=== PATIENT | female | born 2000 | race Caucasian/White ===

== ENCOUNTER 2021-07-06 09:18 | Outpatient (REF) | payer OTHER, SELFPAY ==
[2021-07-06 11:51] LABS: COVID-19 Test Positive (Negative); IDNOW Serial# 55D5AD1C
== END 2021-07-06 09:19 | disposition home or self-care (01) ==
LOC: HO.LAB 09:18
PROVIDERS: Visit Provider Internal Medicine
DX: Z20.822 Contact with and (suspected) exposure to COVID-19 (principal)
CPT/HCPCS: 36415; 87635; C9803

== ENCOUNTER 2024-02-11 11:00 | Outpatient (RCR) | payer OTHER, SELFPAY ==
[2024-01-28 13:59] VITALS: BP 108/66; PULSE 60; RESP 14; TEMP 37
--- NOTE | 2024-01-28 14:00 | PC.NURSE ---
Pt is a 23 y/o female, A&O x 4, with recent referral to [facility] from psych provider for recent suicide attempt and hospitalization in November 2023. She continues to have feeling of lingering anxiety and depression she states she feels numb with no purpose and states was recently diagnosed with borderline personality disorder. PMH- , cholecystectomy. She reports she is currently staying with her mother per orders of DCF secondary to recent suicidal attempt. She is well groomed, clean, dressed appropriate, speech is clear with short responses to questions, mood- tired she reports sleeping approx 5 hrs per night broken sleep. She denies active thoughts of SI/HI with passive fleeting SI thoughts. She denies plan or intent. She reports her current support system is her mother and reports taking meds as prescribed. Medications reconciled with pharmacy.
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
--- NOTE | 2024-01-30 15:16 | HO.PHP ---
Pt's case was opened and review in team.
--- NOTE | 2024-02-06 09:44 | HO.PHP ---
A referral was faxed to [facility] for an OP Med Provider today at 9:45 am.
[2024-02-06 13:19] VITALS: BMI 37.3
--- NOTE | 2024-02-11 23:36 | HO.PHPPROGNO ---
Subjective Subjective Date of Service: 02/11/24 Reason For Visit: borderline personality d/o Interim History: Patient seen for follow-up, anticipating discharge at the end of program today.? She is doing okay . Lamictal is due for increase to 50 mg on Saturday. She is also scheduled to see her provider Miranda Bertrand that day. Reports no acute issues or concerns. Medication compliant, medications well-tolerated. Denies any adverse effects.? Mood is stable.? Denies any hopelessness or SI. Denies thoughts of harming self or others at this time. Denies any aggressive ideation or HI. Denies any paranoia or AH or VH. Sleep, appetite, energy stable. Mental Status Exam Mental Status Exam Narrative: Alert, oriented, in no acute distress. Calm, cooperative. Mood stable, affect appropriate. Speech normal. Thought process linear, coherent, more goal-directed. Thought content related to stressors, future-oriented, denies any helplessness, hopelessness or SI.? No aggressive ideation or HI. No paranoia or delusional content elicited. No evidence of psychosis. Insight and judgment fair-good. Diagnostics Vital Signs (24Hr): BMI result Body Mass Index 37.3 Assessment & Plan Assessment & Plan (1) Post depression: Status: Acute Code(s): F53.0 - depression (2) Borderline personality disorder: Status: Acute Code(s): F60.3 - Borderline personality disorder (3) Cannabis abuse: Status: Acute Code(s): F12.10 - Cannabis abuse, uncomplicated Plan Discharge from [facility] Continue regular medications Refills sent to pharmacy Will defer further medication management to outpatient provider *Safety plan reviewed *Discharge diagnoses, treatment course, discharge plan have been reviewed with patient (including medication regime, medication management, potential side effects) as well as rreatment rationale were also revisited *Discharge paperwork signed and given to patient, copy sent for scanning to chart Patient educated on: diagnosis and medication risk/benefits Informed Consent: understands Reason for contiued partial hosp. stay Substantial Risk for: stable for discharge Certification I certify that partial hospital treatment is medically necessary due to the symptoms and problems resulting from the patient's mental illness and the failure to treat the patient at the partial hospital level of care would likely result in the patient requiring inpatient psychiatric care which could not be prevented at a less intensive level of care. Total time managing care of this patient today __30__ minutes. Discharge Plan Discharge Attending provider: Ora Boles Medications: Continued lamotrigine 25 mg tablet 25 mg PO DAILY hydroxyzine HCl 10 mg tablet 10 - 20 mg PO BID PRN (Reason: anxiety) aripiprazole 5 mg tablet 5 mg PO DAILY Stand Alone Forms: Patient Portal Discharge page Patient Education: Depression (DC) Print Language: Urdu
== END 2024-02-11 23:59 | disposition home or self-care (01) ==
LOC: HO.PHPA 11:00
PROVIDERS: Visit Provider Psychiatry & Neurology Psychiatry
DX: F53.0 Postpartum depression (principal); F60.3 Borderline personality disorder; F12.10 Cannabis abuse, uncomplicated; Z79.899 Other long term (current) drug therapy
CPT/HCPCS: 90791; 90853